=== PATIENT | female | born 2000 | race Caucasian/White ===

== ENCOUNTER → 2018-04-07 | Outpatient (CLI) | payer MEDICAID | LOC: BFHH 18:01 | DX: M00.861 Arthritis due to other bacteria, right knee (principal); M86.171 Other acute osteomyelitis, right ankle and foot; L03.115 Cellulitis of right lower limb ==

== ENCOUNTER → 2018-04-14 | Outpatient (CLI) | payer SELFPAY | LOC: BFHH 15:28 | PROVIDERS: ATTEND Family Medicine Geriatric Medicine | DX: M00.861 Arthritis due to other bacteria, right knee (principal); M86.171 Other acute osteomyelitis, right ankle and foot; L03.115 Cellulitis of right lower limb ==

== ENCOUNTER → 2018-04-21 | Outpatient (CLI) | payer OTHER | LOC: BFHH 15:02 | PROVIDERS: ATTEND Family Medicine Geriatric Medicine | DX: M00.861 Arthritis due to other bacteria, right knee (principal); M86.171 Other acute osteomyelitis, right ankle and foot; L03.115 Cellulitis of right lower limb ==

== ENCOUNTER → 2018-04-28 | Outpatient (CLI) | payer OTHER | LOC: BFHH 14:47 | PROVIDERS: ATTEND Internal Medicine | DX: M00.861 Arthritis due to other bacteria, right knee (principal); M86.171 Other acute osteomyelitis, right ankle and foot; L03.115 Cellulitis of right lower limb ==

== ENCOUNTER → 2018-05-05 | Outpatient (CLI) | payer OTHER | LOC: BFHH 16:15 | PROVIDERS: ATTEND Internal Medicine | DX: M86.171 Other acute osteomyelitis, right ankle and foot (principal); M00.861 Arthritis due to other bacteria, right knee; L03.115 Cellulitis of right lower limb ==

== ENCOUNTER 2020-11-11 00:14 | Emergency (ER) | payer BC, OTHER ==
[2020-11-11] MEDS ORDERED: ALBUTEROL INHALER 64 PUFF/8GM INH ONE (00:21)
--- NOTE | 2020-11-11 00:23 | ED.PDOC ---
History of Present Illness - General Time Seen by Provider: 11/11/20 00:16 Source: patient, RN notes reviewed, Vital Signs reviewed Exam Limitations: no limitations - History of Present Illness Initial Comments: 19 yo 4 days comes in with 20 minutes of chest pain and shortness of breath. States she was breast feeding when is started. Never had anything like this before. NO hx of blood clots. pain is constant right sided worse with breath. no abdominal pain, n/v/d. Timing/Duration: 1 hour Severity/Quality: moderate Chest Pain Radiation: no radiation Activities at Onset: other - Prior Chest Pain/Cardiac Workup: no prior chest pain, no prior cardiac workup Allergies/Adverse Reactions: Allergies Codeine Allergy (Verified 11/11/20 01:45) Gabapentin Allergy (Verified 11/11/20 01:45) Hydrocodone Allergy (Verified 11/11/20 01:45) Metoclopramide Allergy (Verified 11/11/20 01:45) Metronidazole Allergy (Verified 11/11/20 01:45) Naproxen [From Naprosyn] Allergy (Verified 11/11/20 01:45) Vancomycin Allergy (Verified 11/11/20 01:45) Home Medications: Ambulatory Orders Albuterol Inhaler [Ventolin Hfa Inhaler] 108 mcg IN Q6H PRN #1 inh 11/11/20 Prednisone 20 mg PO DAILY #4 tab 11/11/20 Review of Systems - Review of Systems Constitutional: Denies: chills, fever, malaise EENTM: Denies: blurred vision, throat pain Respiratory: States: short of breath, wheezing. Denies: cough Cardiology: States: chest pain. Denies: palpitations, syncope Gastrointestinal/Abdominal: Denies: abdominal pain, diarrhea, nausea, vomiting Genitourinary: Denies: frequency, hematuria Musculoskeletal: Denies: back pain, muscle pain, neck pain Skin: Denies: rash Neurological: Denies: headache, numbness, paresthesia, pre-existing deficit Endocrine: Denies: unexplained weight gain, unexplained weight loss Hematologic/Lymphatic: Denies: blood clots, easy bleeding, easy bruising Past Medical History (General) - Patient Medical History Hx Seizures: No Hx Stroke: No Hx Dementia: No Hx Asthma: No Hx Cardiac Disorders: No Hx Congestive Heart Failure: No Hx Hypertension: No Hx Thyroid Disease: No Hx Diabetes: No Hx Gastroesophageal Reflux: No Hx Renal Disease: No Hx Cancer: No Hx of HIV: No Hx Hepatitis C: No Hx Other - free text: fundoplication as Surgical History: other - knee surgery x 3, fundoplication Family Medical History - Family History Paternal Family History: No Known Mother Hx Family;Other: hypthyroid Physical Exam - Physical Exam General Appearance: Alert, Anxious, Comfortable, No apparent distress, Well Developed, Well Groomed, Well Hydrated, Well Nourished Eyes, Ears, Nose, Throat Exam: normal ENT inspection Neck: non-tender, full range of motion, supple, normal inspection Respiratory: chest non-tender, lungs clear, no accessory muscle use, wheezing Cardiovascular/Chest: normal peripheral pulses, regular rate, rhythm, no edema, no gallop, no JVD, no murmur Peripheral Pulses: radial,right: 2+, radial,left: 2+ Gastrointestinal/Abdominal: normal bowel sounds, non tender, soft, no organomegaly, no pulsatile mass Rectal Exam: deferred Extremity: normal range of motion, non-tender, normal inspection, no pedal edema, no calf tenderness, normal capillary refill 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 patient given albuterol and prednisone here. symptoms improved. wheezing resolv ed. saturating 96% on RA. Could be due to URI or underlying asthma, recommend follow up with pcp. The data reviewed when caring for this patient included: nurse notes, prior records, etc. The history and assessments from nurses notes were reviewed and considered, and the patient's home medication list was also reviewed and considered. My assessment and the results of testing completed here in the ED were discussed with the patient. All questions were answered, and they express understanding of my assessment and the plan. They have been instructed to return if their symptoms worsen, and have been asked to follow up with their primary care physician to recheck today's presenting complaint. Strict return precautions given. I have reviewed medication, benefits, alternatives and side effects. Patient decided to proceed with medication. Ryann Coleman DO #[id number] 11/11/20 01:30 - Results/Orders Results/Orders: 11/11/20 00:17 EKG Assessment ONCE 11/11/20 00:30 EKG STAT 11/11/20 00:45 Sodium Chloride 0.9% 1000ML [Ns 1000 ml] 1,000 ml IVS ONCE Laboratory Results WBC 11.4 K/mm3 (4.8-10.8) H 11/11/20 00:05 RBC 5.17 M/mm3 (4.20-5.40) 11/11/20 00:05 Hgb 14.2 gm/dL (12.0-16.0) 11/11/20 00:05 Hct 43.1 % (36.0-47.0) 11/11/20 00:05 MCV 83.2 fl (81.0-99.0) 11/11/20 00:05 MCH 27.5 pg (27.0-31.0) 11/11/20 00:05 MCHC 33.1 g/dL (33.0-37.0) 11/11/20 00:05 RDW 16.9 % (11.5-14.5) H 11/11/20 00:05 Plt Count 200 K/mm3 (130-400) 11/11/20 00:05 MPV 9.7 fl (7.40-10.4) 11/11/20 00:05 Absolute Neuts (auto) 7.70 K/uL (1.8-6.8) H 11/11/20 00:05 Absolute Lymphs (auto) 2.60 K/uL (1.0-3.4) 11/11/20 00:05 Absolute Monos (auto) 0.70 K/uL (0.2-0.8) 11/11/20 00:05 Absolute Eos (auto) 0.30 K/uL (0.0-0.4) 11/11/20 00:05 Absolute Basos (auto) 0.10 K/uL (0.0-0.1) 11/11/20 00:05 Neutrophils % 68.0 % (42.0-78.0) 11/11/20 00:05 Lymphocytes % 22.6 % (20.0-50.0) 11/11/20 00:05 Monocytes % 6.3 % (2.0-9.0) 11/11/20 00:05 Eosinophils % 2.3 % (1.0-5.0) 11/11/20 00:05 Basophils % 0.8 % (0.0-2.0) 11/11/20 00:05 D-Dimer, Quantitative 780.0 ng/ml (131-400) H* 11/11/20 00:05 Sodium 140 mmol/L (135-145) 11/11/20 00:05 Potassium 3.7 mmol/L (3.6-5.0) 11/11/20 00:05 Chloride 107 mmol/L (101-111) 11/11/20 00:05 Carbon Dioxide 23 mmol/L (21-31) 11/11/20 00:05 Anion Gap 13.7 (12-18) 11/11/20 00:05 BUN 9 mg/dL (7-18) 11/11/20 00:05 Creatinine 0.52 mg/dL (0.6-1.3) L 11/11/20 00:05 BUN/Creatinine Ratio 17.3 (10-20) 11/11/20 00:05 Random Glucose 94 mg/dL (70-105) 11/11/20 00:05 Serum Osmolality 277.8 mOsm/L (275-295) 11/11/20 00:05 Calcium 9.2 mg/dL (8.4-10.2) 11/11/20 00:05 Total Bilirubin 0.4 mg/dL (0.2-1.0) 11/11/20 00:05 AST 20 IU/L (10-42) 11/11/20 00:05 ALT 18 IU/L (10-60) 11/11/20 00:05 Alkaline Phosphatase 110 IU/L (42-121) 11/11/20 00:05 Troponin I < 0.02 ng/mL (0.01-0.05) 11/11/20 00:05 Serum Total Protein 6.6 gm/dL (6.4-8.2) 11/11/20 00:05 Albumin 3.1 g/dl (3.2-5.5) L 11/11/20 00:05 Globulin 3.5 gm/dL (2.3-3.5) 11/11/20 00:05 Albumin/Globulin Ratio 0.9 (1.1-1.9) L 11/11/20 00:05 - EKG/XRAY/CT EKG: Jose, Sinus Comments: sinus arrhythmia, normal intervals, no acute ischemia. XRAY: chest - no acute cardiopulmonary pathology. CT: CTA chest: no PE. Departure - Departure Clinical Impression: Wheezing Chest pain Qualifiers: Chest pain type: unspecified Qualified Code(s): R07.9 - Chest pain, unspecified Time of Disposition: 01:19 Disposition: Discharge to Home or Self Care Condition: Fair Departure Forms: ED Discharge - Pt. Copy, Patient Portal Self Enrollment Instructions: Chest Pain, Wheezing Diet: resume usual diet Activity: increase activity as tolerated Referrals: Hill Ayala MD [Primary Care Provider] - 1-2 Days Prescriptions: Prednisone 20 mg PO DAILY #4 tab Albuterol Inhaler [Ventolin Hfa Inhaler] 108 mcg IN Q6H PRN #1 inh PRN Reason: Wheezing Home Medications: Ambulatory Orders Albuterol Inhaler [Ventolin Hfa Inhaler] 108 mcg IN Q6H PRN #1 inh 11/11/20 Prednisone 20 mg PO DAILY #4 tab 11/11/20
[2020-11-11 00:42] VITALS: TEMP 97.7; O2SAT 94
[2020-11-11] MEDS ORDERED: SODIUM CHLORIDE 0.9% 1000ML 1,000 ML IVS ONE (00:45)
--- NOTE | 2020-11-11 00:53 | RAD ---
EXAM DESCRIPTION: Chest,1 View CLINICAL HISTORY:19 years Female, cp Comparison: None FINDINGS: No focal lung consolidation. No pleural effusion. No pneumothorax. Cardiomediastinal silhouette is within normal limits. No acute osseous abnormality. IMPRESSION: No acute cardiopulmonary disease. Electronically signed by: Je Sky DO 11/11/2020 12:51 AM [facility]
--- NOTE | 2020-11-11 01:10 | CT ---
EXAM DESCRIPTION: CTA Chest 11/11/2020 1:06 AM [facility] CLINICAL HISTORY: 19 years, Female, short of breath, elevated d-dimer COMPARISON: None PROCEDURE: Multiple transaxial tomograms of the chest were obtained from the lung apices through the lung bases utilizing 2 mm slice thickness at 2 mm interval reconstruction after the administration of large bolus of IV contrast for complete opacification of the pulmonary arteries. No dosing amount was provided for interpretation. Subsequent maximum intensity projection images were generated in the coronal and sagittal plane for review. An individualized dose optimization technique, Automated Exposure Control, was utilized for the performed procedure. FINDINGS: The lungs parenchyma demonstrate to be clear. No significant masses, nodules and/or consolidations are identified. The trachea mainstem bronchus demonstrate to be normal. There is no significant pericardial or pleural effusions. Aorta and great vessels demonstrate to be unremarkable there is no evidence for significant thoracic aortic dissection. The heart is normal in size. No evidence for right ventricular strain. There is no significant mediastinal and/or hilar lymphadenopathy. The axillary regions demonstrate to be clear. Pulmonary arteries demonstrate to be normal, no intraluminal defect are seen that would suggest pulmonary embolus. The bone windows demonstrate no significant skeletal abnormalities. The visualized portions of the upper abdomen demonstrate to be unremarkable.. IMPRESSION: NO EVIDENCE FOR PULMONARY EMBOLUS AND/OR THORACIC AORTIC THORACIC DISSECTION. OTHERWISE UNREMARKABLE CT SCAN OF THE CHEST WITH CONTRAST. Electronically signed by: Wilman Benson MD 11/11/2020 1:08 AM [facility]
[2020-11-11] MEDS ORDERED: predniSONE 20 MG TAB PO ONE (01:16)
[2020-11-11 02:07] VITALS: BP 138/82
== END 2020-11-11 02:07 | disposition home or self-care (01) ==
LOC: ER 00:14
DX: R07.9 Chest pain, unspecified (principal); R06.2 Wheezing; R06.02 Shortness of breath; R00.1 Bradycardia, unspecified; Z20.828 Contact with and (suspected) exposure to other viral communicable diseases; Z88.5 Allergy status to narcotic agent; Z88.8 Allergy status to other drugs, medicaments and biological substances; Z88.6 Allergy status to analgesic agent; Z88.1 Allergy status to other antibiotic agents
CPT/HCPCS: 36415; 71045; 71275; 80053; 84484; 85025; 85379; 87635; 93005; 94664; J7030; J7512

== ENCOUNTER 2020-11-15 00:03 | Emergency (ER) | payer BC, OTHER ==
[2020-11-15 00:25] VITALS: TEMP 98.2
[2020-11-15] MEDS ORDERED: hydrALAZINE HCl 20 MG/ML VIAL IV ONE (00:29)
--- NOTE | 2020-11-15 00:45 | RAD ---
EXAM: XR Chest, 1 View CLINICAL HISTORY: The patient is 19 years old and is Female; Hypertension TECHNIQUE: Frontal view of the chest. COMPARISON: No relevant prior studies available. FINDINGS: Lungs: Unremarkable. No consolidation. Pleural space: Unremarkable. No pneumothorax. Heart: Unremarkable. No cardiomegaly. Mediastinum: Unremarkable. Bones/joints: Unremarkable. IMPRESSION: Normal chest x-ray. Electronically signed by: Lavell Tilley MD 11/15/2020 12:43 AM [facility]
--- NOTE | 2020-11-15 01:02 | ED.PDOC ---
History of Present Illness - General Chief Complaint: Blood Pressure Problem Stated Complaint: elevated BP Time Seen by Provider: 11/15/20 00:23 Source: patient, RN notes reviewed, Vital Signs reviewed, family - mother, old records - from her visit5-6 days ago. Exam Limitations: no limitations - History of Present Illness Initial Comments: Patient is a 19-year-old white female who is a Ab0 1 week status post spontaneous vaginal delivery without complications. Patient had no complications with her and has no history of hypertension nor did she have any preeclampsia. Patient seen here approximately 5 days ago, approximately 2 days after her delivery with complaints of elevated blood pressure and headache. Patient was worked up and discharged home. Patient presents again tonight with worsening headache, throbbing in nature, severe, constant, not improved by anything. Headache is made worse with movement. There is no radiation of the pain. Timing/Duration: 1 week Severity: severe Improving Factors: nothing Worsening Factors: movement Associated Symptoms: headaches Allergies/Adverse Reactions: Allergies Codeine Allergy (Verified 11/15/20 00:12) Gabapentin Allergy (Verified 11/15/20 00:12) Hydrocodone Allergy (Verified 11/15/20 00:12) Metoclopramide Allergy (Verified 11/15/20 00:12) Metronidazole Allergy (Verified 11/15/20 00:12) Naproxen [From Naprosyn] Allergy (Verified 11/15/20 00:12) Vancomycin Allergy (Verified 11/15/20 00:12) Home Medications: Ambulatory Orders Albuterol Inhaler [Ventolin Hfa Inhaler] 108 mcg IN Q6H PRN #1 inh 11/11/20 Prednisone 20 mg PO DAILY #4 tab 11/11/20 Amoxicillin & Pot Clavulanate [Augmentin Tab] 500 mg PO BID #6 tablet 11/15/20 Methyldopa 250 mg PO BID 11/15/20 Review of Systems - Review of Systems Constitutional: States: no symptoms reported, see HPI. Denies: chills, fever, malaise, weakness EENTM: States: see HPI, blurred vision. Denies: double vision Respiratory: States: no symptoms reported. Denies: cough, short of breath Cardiology: States: no symptoms reported. Denies: chest pain, palpitations, syncope Gastrointestinal/Abdominal: States: no symptoms reported. Denies: abdominal pain, diarrhea, nausea, vomiting Genitourinary: States: discharge - lochia s/p WFE Musculoskeletal: States: no symptoms reported. Denies: back pain, joint pain, n leana pain Skin: States: no symptoms reported. Denies: change in color, rash Neurological: States: see HPI, headache. Denies: tingling, tremors, weakness Endocrine: States: no symptoms reported. Denies: increased hunger, increased thirst, increased urine Hematologic/Lymphatic: States: no symptoms reported. Denies: blood clots, easy bleeding All other Systems: Reviewed and Negative Past Medical History (General) - Patient Medical History Hx Seizures: No Hx Stroke: No Hx Dementia: No Hx Asthma: No Hx Cardiac Disorders: No Hx Congestive Heart Failure: No Hx Hypertension: Yes Hx Thyroid Disease: No Hx Diabetes: No Hx Gastroesophageal Reflux: No Hx Renal Disease: No Hx Cancer: No Hx of HIV: No Hx Hepatitis C: No Surgical History: other - Vaccination History Hx Tetanus, Diphtheria Vaccination: Yes Hx Influenza Vaccination: No Hx Pneumococcal Vaccination: No - Social History Hx Tobacco Use: No Hx Alcohol Use: No - Female History Patient : No - 4 days PP Family Medical History - Family History Paternal Family History: No Known Hx Family Hypertension: Yes Mother Hx Family;Other: hypthyroid Physical Exam - Physical Exam General Appearance: Alert, Anxious, Well Developed, Well Groomed, Well Hydrated, Well Nourished Eye Exam: bilateral normal Ears, Nose, Throat: hearing grossly normal, normal ENT inspection, normal pharynx Neck: non-tender, full range of motion, supple Respiratory: chest non-tender, lungs clear, normal breath sounds, no respiratory distress, no accessory muscle use Cardiovascular/Chest: normal peripheral pulses, regular rate, rhythm, no edema, no gallop, no JVD Peripheral Pulses: radial,right: 2+, radial,left: 2+ Gastrointestinal/Abdominal: normal bowel sounds, non tender, soft Back Exam: normal inspection, no CVA tenderness, no vertebral tenderness Extremity: normal range of motion, non-tender, normal inspection 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 11/15/20 01:22 Patient's labs have returned. She does not have any elevated LFTs, low platelet count or protein in the urine. She does have a UTI. Patient is breast-feeding so I will place her on a 3-day course of Augmentin. I am awaiting a callback from her GROUND WIRER, Dr. Kelly. 11/15/20 02:00 Patient's magnesium has infused. Her blood pressure is now down to 138/70. Her headache has resolved. Plan on discharge home with a prescription for Augmentin for her UTI. I discussed the plan of care with the patient and her mother and they voiced understanding and agreement with the plan of care. Patient is following up with her GROUND W[facility]ER in the morning. Ethan Granados M.D. #[id number] 11/15/20 02:09 - Results/Orders Results/Orders: 11/15/20 00:25 EKG Assessment ONCE 11/15/20 00:26 URINE CULTURE W/COLONY COUNT Stat 11/15/20 00:30 EKG .ONCE 11/15/20 01:06 Magnesium Sulfate Inj 1 gm Sodium Chloride 0.9% 100Ml [NS (NACL 0.9%) 100ml] 100 ml IVPB ONCE Laboratory Results - last 24 hr 11/15/20 11/15/20 11/15/20 00:24 00:24 00:26 WBC 10.7 RBC 5.26 Hgb 14.4 Hct 43.6 MCV 83.0 MCH 27.3 MCHC 32.9 L RDW 16.6 H Plt Count 316 MPV 8.4 Absolute Neuts (auto) 6.80 Absolute Lymphs (auto) 2.90 Absolute Monos (auto) 0.70 Absolute Eos (auto) 0.10 Absolute Basos (auto) 0.20 H Neutrophils % 64.0 Lymphocytes % 27.1 Monocytes % 6.2 Eosinophils % 1.2 Basophils % 1.5 Sodium 139 Potassium 3.7 Chloride 107 Carbon Dioxide 22 Anion Gap 13.7 BUN 13 Creatinine 0.53 L BUN/Creatinine Ratio 24.5 H Random Glucose 86 Serum Osmolality 277.0 Calcium 9.0 Magnesium Total Bilirubin 0.6 AST 12 ALT 14 Alkaline Phosphatase 96 Serum Total Protein 6.6 Albumin 3.3 Globulin 3.3 Albumin/Globulin Ratio 1.0 L Lipase 27 Urine Color Yellow Urine Appearance Sl cloudy Urine pH 7.0 Ur Specific [place] 1.015 Urine Protein Negative Urine Glucose (UA) Negative Urine Ketones Negative Urine Blood Moderate H Urine Nitrite Negative Urine Bilirubin Negative Urine Urobilinogen 0.2 Ur Leukocyte Esterase Moderate H Urine RBC 10-20 H Urine WBC >100 H Ur Epithelial Cells 3-5 Urine Bacteria 2+ H 11/15/20 01:05 WBC RBC Hgb Hct MCV MCH MCHC RDW Plt Count MPV Absolute Neuts (auto) Absolute Lymphs (auto) Absolute Monos (auto) Absolute Eos (auto) Absolute Basos (auto) Neutrophils % Lymphocytes % Monocytes % Eosinophils % Basophils % Sodium Potassium Chloride Carbon Dioxide Anion Gap BUN Creatinine BUN/Creatinine Ratio Random Glucose Serum Osmolality Calcium Magnesium 2.0 Total Bilirubin AST ALT Alkaline Phosphatase Serum Total Protein Albumin Globulin Albumin/Globulin Ratio Lipase Urine Color Urine Appearance Urine pH Ur Specific [place] Urine Protein Urine Glucose (UA) Urine Ketones Urine Blood Urine Nitrite Urine Bilirubin Urine Urobilinogen Ur Leukocyte Esterase Urine RBC Urine WBC Ur Epithelial Cells Urine Bacteria EKG performed on 15 November 2020 at 0019 hrs.: Normal sinus rhythm with sinus arrhythmia at 68 bpm, normal axis deviation, no ST or T wave changes concerning for ischemia, normal EKG. No comparison EKG available at this time. Departure - Departure Clinical Impression: UTI (urinary tract infection) Qualifiers: Urinary tract infection type: acute cystitis Hematuria presence: without hematuria Qualified Code(s): N30.00 - Acute cystitis without hematuria Headache Qualifiers: Headache type: unspecified Headache chronicity pattern: acute headache Intractability: not intractable Qualified Code(s): R51.9 - Headache, unspecified Hypertension Qualifiers: Hypertension type: unspecified Qualified Code(s): I10 - Essential (primary) hypertension Time of Disposition: 02:06 Disposition: Discharge to Home or Self Care Condition: Good Departure Forms: ED Discharge - Pt. Copy, Patient Portal Self Enrollment Instructions: DI for High Blood Pressure Diet: resume usual diet Activity: increase activity as tolerated Referrals: Hill Ayala MD [Primary Care Provider] - 1-2 Days Prescriptions: Amoxicillin & Pot Clavulanate [Augmentin Tab] 500 mg PO BID #6 tablet Home Medications: Ambulatory Orders Albuterol Inhaler [Ventolin Hfa Inhaler] 108 mcg IN Q6H PRN #1 inh 11/11/20 Prednisone 20 mg PO DAILY #4 tab 11/11/20 Amoxicillin & Pot Clavulanate [Augmentin Tab] 500 mg PO BID #6 tablet 11/15/20 Methyldopa 250 mg PO BID 11/15/20
[2020-11-15] MEDS ORDERED: MAGNESIUM SULFATE INJ 1 GM in SODIUM CHLORIDE 0.9% 100ML 100 ML IVPB ONE (01:06)
[2020-11-15 02:01] VITALS: BP 128/91; O2SAT 93
== END 2020-11-15 02:14 | disposition home or self-care (01) ==
LOC: ER 00:03
DX: R51.9 Headache, unspecified (principal); O16.5 Unspecified maternal hypertension, complicating the puerperium; O86.22 Infection of bladder following delivery; Z88.6 Allergy status to analgesic agent; Z88.1 Allergy status to other antibiotic agents; Z88.5 Allergy status to narcotic agent; Z88.8 Allergy status to other drugs, medicaments and biological substances
CPT/HCPCS: 36415; 71045; 80053; 81001; 83690; 83735; 85025; 87086; 93005; J0360; J3475; J7050

== ENCOUNTER → 2020-11-16 | Outpatient (CLI) | payer BC, OTHER ==
--- NOTE | 2020-11-16 12:09 | MRI ---
EXAM DESCRIPTION: Brain w/oContrast CLINICAL HISTORY: HYPERTENSIVE URGENCY COMPARISON: None available TECHNIQUE: Non contrast MRI of the brain is performed according to our usual protocol including multiplanar multi sequence technique. FINDINGS: Sagittal T1 images show intact corpus callosum. Normal pituitary gland with normal T1 appearance of the serena and medulla and upper cervical cord. Normal signal intensity within the clivus and calvarium. Axial T2 fat sat images reveal preservation of intracranial vascular flow voids. Normal duarte matter and white matter T2 signal intensity. Normal ventricles with normal gyral and sulcal fold pattern. The globes appear intact and symmetrical. No abnormal fluid signal in the paranasal sinuses, tympanic cavities or mastoid air cells. Axial flair images show normal signal intensity of the duarte matter and the white matter. No microvascular ischemic changes. Diffusion weighted images are negative for focal intense increased signal intensity in the brain parenchyma to suggest restricted diffusion. ADC mapping is negative. Axial T1 images show normal duarte-white matter differentiation. No high signal intensity hemorrhagic lesion of the brain parenchyma. No subdural hematoma. Axial susceptibility weighted images are negative for focal signal loss to suggest abnormal brain parenchymal calcification or hemosiderin deposition. IMPRESSION: Normal noncontrast MRI examination of the brain. Electronically signed by: Hill Crowell MD 11/16/2020 12:07 PM [facility]
== END ==
LOC: MRI 10:56
PROVIDERS: ATTEND Family Medicine Sports Medicine
DX: I16.0 Hypertensive urgency (principal)